=== PATIENT | male | born 1955 | race African-American/Black ===

== ENCOUNTER 2019-02-25 18:58 | Emergency (ER) | payer BC ==
[2019-02-25] MEDS ORDERED: Nitroglycerin 0.4 MG Tab.SL SL ONE (20:23)
[2019-02-25] MEDS ORDERED: Aspirin 81 MG Tab.Chew PO ONE (20:25)
--- NOTE | 2019-02-25 20:26 | EDM.PDOC ---
ED HPI GENERAL MEDICAL PROBLEM - General Chief Complaint: Gastrointestinal Problem Stated Complaint: PAIN Time Seen by Provider: 02/25/19 20:25 Source of Information: Reports: Patient History Limitations: Reports: No Limitations - History of Present Illness INITIAL COMMENTS - FREE TEXT/NARRATIVE: Very pleasant 63-year-old gentleman presents to the ER with epigastric discomfort. Patient has epigastric discomfort starting at the proximal a 7:00 this morning. Patient tried multiple [id number] treatments to help with his epigastric discomfort including Rolaids and Tums. Patient actually had worsening symptoms or is at the local pharmacy this morning. Patient tried to rest and get comfortable but the symptoms just not improved. He presented here due to continued epigastric discomfort that is not improving with multiple treatment modalities. Food did not make his symptoms better or worse he seems to have slightly worsened symptoms with lying down and activity. Patient has had similar symptoms in the past. He has diabetic is on metformin. He has elevated cholesterol. He does not believe he has hypertension but does have a history of high blood pressure in the past but is not currently treated. Patient denies any headache, cough or upper respiratory tract symptoms. Denies any diarrhea or constipation. Denies any rash or sores to skin. Patient has not had any abdominal surgeries denies any history of gallbladder concerns. Epigastric Pain Score (Numeric/FACES): 5 - Related Data Allergies Allergy/AdvReac Type Severity Reaction Status Date / Time codeine Allergy Itching Verified 02/25/19 19:52 Home Meds: Home Meds Aspirin [Adult Low Dose Aspirin EC] 81 mg PO DAILY 02/25/19 [History] Cholecalciferol (Vitamin D3) [Vitamin D3] 50,000 unit PO Q7D 02/25/19 [History] atorvaSTATin [Lipitor] 40 mg PO BEDTIME 02/25/19 [History] metFORMIN HCl [Metformin HCl] 1,000 mg PO BID 02/25/19 [History] Past Medical History HEENT History: Reports: Impaired Vision Cardiovascular History: Reports: High Cholesterol Musculoskeletal History: Reports: Fracture Endocrine/Metabolic History: Reports: Diabetes, Type II, Vitamin D Deficiency - Infectious Disease History Infectious Disease History: Reports: Chicken Pox, Measles, Mumps - Past Surgical History HEENT Surgical History: Reports: Tonsillectomy GI Surgical History: Reports: Colonoscopy Social & Family History - Tobacco Use Smoking Status *Q: Current Every Day Smoker Years of Tobacco use: 45 Packs/Tins Daily: 0.5 - Caffeine Use Caffeine Use: Reports: Coffee - Alcohol Use Days Per Week of Alcohol Use: 7 Number of Drinks Per Day: 1 Total Drinks Per Week: 7 - Recreational Drug Use Recreational Drug Use: No ED ROS GENERAL - Review of Systems Review Of Systems: ROS reveals no pertinent complaints other than HPI. Cardiovascular: Reports: Chest Pain (epigastric pain ) ED EXAM, GENERAL - Physical Exam Exam: See Below Exam Limited By: No Limitations General Appearance: Alert, WD/WN, No Apparent Distress Ears: Normal External Exam, Normal Canal, Hearing Grossly Normal, Normal TMs Nose: Normal Inspection, Normal Mucosa, No Blood Throat/Mouth: Normal Inspection, Normal Lips, Normal Teeth, Normal Gums, Normal Oropharynx, Normal Voice, No Airway Compromise Head: Atraumatic, Normocephalic Neck: Normal Inspection, Supple, Non-Tender, Full Range of Motion Respiratory/Chest: No Respiratory Distress, Lungs Clear, Normal Breath Sounds, No Accessory Muscle Use, Chest Non-Tender Cardiovascular: Normal Peripheral Pulses, Regular Rate, Rhythm, No Edema, No Gallop GI/Abdominal: Normal Bowel Sounds, Soft, No Organomegaly, No Abnormal Bruit, Tender (epigastric discomfort with palpation ) Back Exam: Normal Inspection, Full Range of Motion, NT Extremities: Normal Inspection, Normal Range of Motion, Non-Tender, Normal Capillary Refill, No Pedal Edema Neurological: Alert, Oriented, CN II-XII Intact, Normal Cognition, Normal Gait, Normal Reflexes, No Motor/Sensory Deficits Psychiatric: Normal Affect, Normal Mood EKG INTERPRETATION EKG Date: 02/25/19 Time: 20:53 Rhythm: Other (Tachycardia) [place]: Normal P-Wave: Present (ST-T wave changes. Slight depression in inferior leads but no reciprocal changes noted. Possible elevation in V1 and V2.) Comparison: NA - No Prior EKG Course - Vital Signs Last Recorded V/S: Last Vital Signs Temp 36.2 C 02/25/19 19:57 Pulse 102 H 02/25/19 22:19 Resp 16 02/25/19 22:19 BP 225/125 H 02/25/19 22:19 Pulse Ox 94 L 02/25/19 22:19 - Orders/Labs/Meds Orders: Active Orders 24 hr Category Date Time Status Cardiac Monitoring [RC] .As Directed Care 02/25/19 20:24 Active EKG Documentation Completion [RC] ASDIRECTED Care 02/25/19 20:24 Active Heparin Sodium/D5W [Heparin 25,000 Units in D5W 500 ML] Med 02/25/19 21:30 Active 25,000 units in 500 ml IV TITRATE Nitroglycerin/D5W [Nitroglycerin 25 MG/D5W 250 ML] Med 02/25/19 21:30 Active 25 mg in 250 ml IV TITRATE EKG 12 Lead [EK] Stat Ther 02/25/19 20:23 Ordered Medication Orders Heparin Sodium/Dextrose (Heparin 25,000 Units In D5w 500 Ml) 25,000 units in 500 mls @ 20 mls/hr IV TITRATE CASPER; Protocol Last Admin: 02/25/19 22:06 Dose: 1,000 units/hr, 20 mls/hr Nitroglycerin/Dextrose (Nitroglycerin 25 Mg/D5w 250 Ml) 25 mg in 250 mls @ 3 mls/hr IV TITRATE CASPER; Protocol Last Titration: 02/25/19 22:20 Dose: 10 mcg/min, 6 mls/hr Titration: 02/25/19 22:15 Dose: 7 mcg/min, 4.2 mls/hr Admin: 02/25/19 21:47 Dose: 5 mcg/min, 3 mls/hr Labs: Laboratory Tests 02/25/19 02/25/19 02/25/19 Range/Units 20:23 20:23 21:20 WBC 10.2 (4.5-11.0) K/uL RBC 6.08 H (4.30-5.90) M/uL Hgb 17.4 H (12.0-15.0) g/dL Hct 49.0 (40.0-54.0) % MCV 81 (80-98) fL MCH 29 (27-31) pg MCHC 36 (32-36) % Plt Count 262 (150-400) K/uL Neut % (Auto) 80 H (36-66) % Lymph % (Auto) 16 L (24-44) % [facility] % (Auto) 4 (2-6) % Eos % (Auto) 0 L (2-4) % Baso % (Auto) 0 (0-1) % APTT 27.1 (27.0-36.0) sec Sodium 133 L (140-148) mmol/L Potassium 3.8 (3.6-5.2) mmol/L Chloride 93 L (100-108) mmol/L Carbon Dioxide 30 (21-32) mmol/L Anion Gap 13.8 (5.0-14.0) mmol/L BUN 10 (7-18) mg/dL Creatinine 1.1 (0.8-1.3) mg/dL Est Cr Clr Drug Dosing 55.32 mL/min Estimated GFR (MDRD) > 60 (>60) Glucose 194 H (74-106) mg/dL Calcium 11.9 H (8.5-10.1) mg/dL Total Bilirubin 0.7 (0.2-1.0) mg/dL AST 75 H (15-37) U/L ALT 29 (12-78) U/L Alkaline Phosphatase 74 (46-116) U/L Troponin I 8.580 H* (0.000-0.056) ng/mL Total Protein 8.6 H (6.4-8.2) g/dL Albumin 4.3 (3.4-5.0) g/dL Globulin 4.3 H (2.3-3.5) g/dL Albumin/Globulin Ratio 1.0 L (1.2-2.2) Lipase 148 (73-393) U/L Meds: Medications Generic Name Dose Route Start Last Admin Trade Name Freq PRN Reason Stop Dose Admin Heparin Sodium/Dextrose 25,000 units in 500 mls @ 20 mls/hr 02/25/19 21:30 22:06 Heparin 25,000 Units In D5w 500 Ml IV 1,000 units/hr TITRATE CASPER 20 mls/hr Administration Protocol 1,000 UNITS/HR Nitroglycerin/Dextrose 25 mg in 250 mls @ 3 mls/hr 02/25/19 21:30 02/25/19 22 :20 Nitroglycerin 25 Mg/D5w 250 Ml IV 10 mcg/min TITRATE CASPER 6 mls/hr Titration Protocol 5 MCG/MIN Discontinued Medications Generic Name Dose Route Start Last Admin Trade Name Oseasq PRN Reason Stop Dose Admin Aspirin 324 mg 02/25/19 20:25 02/25/19 20:49 Aspirin PO 02/25/19 20:26 324 mg ONETIME ONE Administration Clopidogrel Bisulfate 150 mg 02/25/19 21:19 Plavix PO 02/25/19 21:20 ONETIME ONE Clopidogrel Bisulfate 600 mg 02/25/19 21:26 02/25/19 21:45 Plavix PO 02/25/19 21:27 600 mg ONETIME ONE Administration Heparin Sodium (Porcine) 5,000 units 02/25/19 21:21 02/25/19 21:44 Heparin Sodium IVPUSH 02/25/19 21:22 5,000 units ONETIME ONE Administration Nitroglycerin 0.4 mg 02/25/19 20:23 02/25/19 20:50 Nitrostat SL 02/25/19 20:24 0.4 mg ONETIME ONE Administration - Radiology Interpretation Free Text/Narrative:: CXR PA/LAT: No significant acute changes noted. No cardiomegaly observed. Radiology report reviewed. - Re-Assessments/Exams Free Text/Narrative Re-Assessment/Exam: Examination is completed. EKG showed no significant ST segment WI or changed at this point in time. No previous EKG available. Awaiting for laboratory studies. Patient was given 324 mg of aspirin chewable and nitroglycerin sublingual. Patient did not describe a significant change in his chest pain blood pressure on initial evaluation was 220/110s. Blood pressure improved to 160/90s with single nitroglycerin. He is kept on a monitor. Laboratory called troponin is 8.50. I initiated and NSTEMI pain management including heparin bolus, heparin drip, PTT blood test, Plavix 600 mg orally was given. Nitroglycerin drip was initiated and titrated to resolution of chest pain but maintained blood pressure parameters blood pressure greater than 110/60. I spoke to [facility] cardiology service regarding patient's non-ST segment WI. Patient be medically managed with heparin and nitroglycerin. He be transferred to [facility] telemetry unit for cardiovascular evaluation likely intervention. Patient was updated regarding findings and a prescription for further evaluation patient requested [facility] location to be transferred. 02/25/19 21:44 Chest pain improved to discomfort 2 out of 10. Blood pressure 230/135. Nitro gtt at 15mcg/min. 02/25/19 22:38 Free Text/Narrative Re-Assessment/Exam: Nitro gtt increased to 25mcg/min. SAM 194/97 at time of EMS arrival. EMS will continue to titrate nitro to SBP 100 and pain free. Reassessment at [facility] ER planned. 02/25/19 23:08 Departure - Departure Time of Disposition: 23:09 Disposition: DC/Tfer to Acute Hospital 02 Clinical Impression: NSTEMI (non-ST elevated myocardial infarction), Chest pain, Diabetic acidosis, type II, Hyperlipemia - Discharge Information Referrals: Adam Huff MD [Primary Care Provider] - (post hospitalization for NSTEMI) Forms: ED Department Discharge - Problem List & Annotations (1) NSTEMI (non-ST elevated myocardial infarction) SNOMED Code(s): 26714461 Code(s): I21.4 - NON-ST ELEVATION (NSTEMI) MYOCARDIAL INFARCTION Status: Acute Current Visit: Yes (2) Chest pain SNOMED Code(s): 25457313 Code(s): R07.9 - CHEST PAIN, UNSPECIFIED Status: Acute Current Visit: Yes (3) Diabetic acidosis, type II SNOMED Code(s): 891039598, 150421338 Code(s): E11.10 - TYPE 2 DIABETES MELLITUS WITH KETOACIDOSIS WITHOUT COMA Status: Acute Current Visit: Yes (4) Hyperlipemia SNOMED Code(s): 50838221 Code(s): E78.5 - HYPERLIPIDEMIA, UNSPECIFIED Status: Acute Current Visit : Yes - My Orders Last 24 Hours: My Active Orders 02/25/19 20:23 EKG 12 Lead [EK] Stat 02/25/19 20:24 Cardiac Monitoring [RC] .As Directed EKG Documentation Completion [RC] ASDIRECTED 02/25/19 21:30 Heparin Sodium/D5W [Heparin 25,000 Units in D5W 500 ML] 25,000 units in 500 ml IV TITRATE Nitroglycerin/D5W [Nitroglycerin 25 MG/D5W 250 ML] 25 mg in 250 ml IV TITRATE - Assessment/Plan Last 24 Hours: My Active Orders 02/25/19 20:23 EKG 12 Lead [EK] Stat 02/25/19 20:24 Cardiac Monitoring [RC] .As Directed EKG Documentation Completion [RC] ASDIRECTED 02/25/19 21:30 Heparin Sodium/D5W [Heparin 25,000 Units in D5W 500 ML] 25,000 units in 500 ml IV TITRATE Nitroglycerin/D5W [Nitroglycerin 25 MG/D5W 250 ML] 25 mg in 250 ml IV TITRATE
--- NOTE | 2019-02-25 21:12 | CRLCR ---
CHEST 2 VIEWS INDICATION: Chest pain IMPRESSION: Normal heart size and vascular pattern. Lungs are clear. No pneumothorax or pleural effusion. Dictated by Jose Puga MD @ Feb 25 2019 9:09PM Signed by Dr. Jose Puga @ Feb 25 2019 9:10PM
[2019-02-25] MEDS ORDERED: Clopidogrel 75 MG Tab PO ONE ×2 (21:19→21:26)
[2019-02-25] MEDS ORDERED: Heparin Sodium 5,000 Units/ML Vial IVPUSH ONE (21:21)
[2019-02-25] MEDS ORDERED: Nitroglycerin/D5W 25 MG/250 ML BOTTLE IV SCH (21:30)
[2019-02-25] MEDS ORDERED: Heparin Sodium/D5W 25,000 UNITS/500 ML BAG IV SCH (21:30)
== END 2019-02-25 23:34 ==
LOC: JP.ED 18:58
DX: I21.4 Non-ST elevation (NSTEMI) myocardial infarction (principal); E10.10 Type 1 diabetes mellitus with ketoacidosis without coma; E78.5 Hyperlipidemia, unspecified; E78.00 Pure hypercholesterolemia, unspecified; F17.210 Nicotine dependence, cigarettes, uncomplicated; Z79.82 Long term (current) use of aspirin; Z79.899 Other long term (current) drug therapy; Z88.5 Allergy status to narcotic agent
CPT/HCPCS: 36415; 71046; 80053; 83690; 84484; 85025; 85730; 93005; 96365; 96366; 96368; 96376; 99285; A9270; J1644; J3490